=== PATIENT | female | born 1955 | race Caucasian/White ===

== ENCOUNTER 2016-06-24 12:17 | Emergency (ER) | payer MEDICARE ==
[2016-06-24 12:17] VITALS: BMI 31.7
[2016-06-24 12:21] VITALS: TEMP 98
[2016-06-24] MEDS ORDERED: SODIUM CHLORIDE 0.9% 10 ML FLUSH FLUSH PRN (12:45)
[2016-06-24] MEDS ORDERED: NS 1,000 ML IV ONE (12:45)
--- NOTE | 2016-06-24 12:49 | EDPRACDOC ---
- General Information Chief Complaint: Neuro Symptoms/Deficits Stated Complaint: DIZZINESS Time Seen by Provider: 06/24/16 12:40 Information Source: Patient Mode Of Arrival: Car Home Medications: Home Medications Aspirin 325 mg PO HS 10/17/12 Calcium Acetate 2,668 mg PO .TID WITH MEALS 10/17/12 Digoxin [Lanoxin, Digitek] 0.125 mg PO HS 10/17/12 Venlafaxine HCl ER [Effexor Xr] 75 mg PO HS 10/17/12 Vit B Cmplx 3/FA/Vit C/Biotin [Leatha-Alisa Rx Tablet] 1 tab PO DAILY 10/17/12 Alprazolam [Xanax] 0.5 mg PO .ONDIALYSISDAYS 11/02/12 CYANOCOBALAMIN (Vitamin B-12) [Vitamin B-12 (cyanocobalamin)] 1,000 mcg IM QMONTH 11/02/12 Diphenhydramine [Benadryl] 25 mg PO Q6H PRN 11/02/12 Magnesium 500 mg PO HS 11/02/12 [place]-3S/Dha/Epa/Fish Oil [Fish Oil 1,200 mg Softgel] 2 cap PO HS 11/02/12 Calcium Acetate 667 mg PO .BID WITH SNACKS 06/22/14 Gabapentin [Neurontin] 300 mg PO HS 06/22/14 Lansoprazole [Prevacid] 30 mg PO HS 06/22/14 Cefdinir 300 mg PO DAILY #3 capsule 06/24/16 Allergies/Adverse Reactions: Allergies Allergy/AdvReac Type Severity Reaction Status Date / Time ciprofloxacin [From Cipro] Allergy Unknown Hives* Verified 06/24/16 12:21 ciprofloxacin HCl Allergy Unknown Unknown Verified 06/24/16 12:21 [From Cipro] latex Allergy Unknown Rash-Genera Verified 06/24/16 12:21 lized Iodinated Contrast Media - Allergy Rash-Genera Verified 06/24/16 12:21 IV Dye lized Sulfa (Sulfonamide Allergy Rash-Genera Verified 06/24/16 12:21 Antibiotics) lized - History of Present Illness Onset: YEST Exact Onset of Symptoms: Unknown HPI: Pt c/o headache, dizziness, low BP, sob x 2 days. Denies fever, cough, congestion, cp, abd pain, n/v, changes in bowel or bladder, rash. Pt states felt bad prior to yesterday dialysis and continued to have low bp after receiving saline from dialysis. Symptoms Started: Reports: Gradually Symptoms Description: Constant Symptoms: Reports: Vertigo, Weak Symptom Severity: Reports: Unable to performs ADL's Associated signs and symptoms:: Reports: Headache Other History: Pt states open wound to R buttock x 2 weeks. Denies recent antibiotics. ED Past Medical History - History Reviewed Yes Nurses notes reviewed and agree except as marked - Patient Medical History Cardiac History: Reports: Atrial Fibrillation GI/ History: Reports: Renal Disease (CKD, ST I - REMOVED 1/4 OF LEFT KIDNEY), Ulcer, IBD (ILEOSTOMY) Musculoskeletal History: Reports: Arthritis, Gout Psychological History: Reports: Depression Systemic History: Reports: Cancer (KIDNEY), Anemia Surgical History: Reports: Cholecystectomy. Denies: Hysterectomy Date of Last Radiation Treatment: NO Date of Last Chemotherapy Date: NO - Family Medical History Reports: Hypertension (mom), Diabetes (sister), Cancer (mom- endometrial). Denies: Stroke, Cardiac Disorders - Social Medical History Smoking Status: Current some day smoker ETOH: None Substance Abuse: None EDM Review of Systems - Review of Systems Constitutional: Loss of Appetite, Weakness Ears: No Symptoms Reported. negative: Pain, Hearing Loss, Drainage, Ear Pulling Throat: No Symptoms Reported. negative: Pain, Swelling Nose: No Symptoms Reported. negative: Congestion, Bleeding, Discharge, Injection, Swelling, Deformity, Ecchymosis, Tender, Abrasion, Laceration Mouth: No Symptoms Reported. negative: Pain, Drooling Respiratory: Shortness of Breath Cardiovascular: No Symptoms Reported. negative: Chest Pain, Palpitations, Syncope, Edema, Orthopnea, PND, Skin Mottling, Cyanosis Gastrointestinal: No Symptoms Reported. negative: Pain, Constipation, Nausea, Vomiting, Diarrhea, Melena, Formula Intolerance Genitourinary: No Symptoms Reported. negative: Dysuria, Hematuria, Frequency, Discharge, Bleeding, Testicular Pain, Neurological: Dizziness, Headache Musculoskeletal: No Symptoms Reported. negative: Neck, Chestwall, Ribs, Back, Shoulder, Arm, Elbow, Forearm, Wrist, Hand, Pelvis, Hip, Femur, Knee, Leg, Ankle , Foot Integumentary: No Symptoms Reported. negative: Itching, Rash, Bruising, Wound Allergic/Immunologic: No Symptoms Reported. negative: Hives, Itching Hematologic: No Symptoms Reported. negative: Lymphadenopathy, Easy Bruising, Easy Bleeding Psychiatric: No Symptoms Reported. negative: Anxiety, Depression, Hallucinations, Insomnia, Suicidal - Physical Exam Constitutional: Alert Oriented to: Time, Person, Place Last recorded Vital Signs: Last Vital Signs Temp 98.0 F 06/24/16 12:19 Pulse 106 06/24/16 12:19 Resp 18 06/24/16 12:19 BP 85/53 L 06/24/16 12:19 Pulse Ox 96 06/24/16 12:19 Oxygen Pulse Oxygen Saturation 96 O2 Device Oxygen Flow Rate Fraction of Inspired Oxygen ( FIO2) - HEENT Head: Normal ( normocephalic) Eye Exam: Normal (PERRL, EOMI, Sclera white) Oropharynx: Normal (Pharynx:Moist without exudate,Gums-no swelling) Tympanic Membrane: Normal ENT EAC: Normal Nose: No Symptoms Reported (septum midline) Neck: Normal (FROM, trachea at midline) - Respiratory/Cardiovascular Respiratory: Normal - CTA (BBS clear to auscultation without adventitious sounds ) Cardiovascular: Tachycardia - GI Auscultation: Normal (NABS) Palpation: Normal (Soft,No rebound or guarding, non distended) Tenderness: Non tender, Other (ostomy bag RLQ) - Integumentary Skin: Normal, Warm, Dry, Other (R buttock 2 open wounds draining with erythema to surround tissue.) Lymphatics: Normal (no adenopathy) - Neurologic Memory Impaired: Normal Motor Function: Normal (Normal tone, Pulses 2+ No cyanosis or edema, FROM) Cranial Nerve: Normal (CN II-X11 intact sensation, strength 5/5) Cerebellar: Normal. negative: Ataxia, Past-Pointing, Tremor, Unable to Test, Other Mood Description: Normal Perception: Normal - Differential Diagnosis Anemia, CVA, Dehydration, Dysrhythmia, Electrolyte disorder, TIA, Vertigo - Results 06/24/16 12:50 06/24/16 12:50 06/24/16 16:23 Laboratory Results - last 24 hr 06/24/16 06/24/16 06/24/16 12:50 12:50 12:50 WBC 10.2 RBC 3.32 L Hgb 12.7 Hct 37.6 MCV 113 H MCH 38.2 H MCHC 33.8 RDW 15.7 H Plt Count 268 MPV 7.8 Neut % (Auto) 78.4 H Lymph % (Auto) 15.4 L [place] % (Auto) 4.2 Eos % (Auto) 1.4 Baso % (Auto) 0.6 Absolute Neuts (auto) 7.96 Absolute Lymphs (auto) 1.53 PT 11.4 H INR 1.1 APTT 26.1 Sodium 137 Potassium 3.6 Chloride 92 L Carbon Dioxide 25 Anion Gap 24 H BUN 32 H Creatinine 6.50 H Estimated GFR (MDRD) 7 L Glucose 125 H Calculated Osmolality 272 Lactic Acid Calcium 10.0 Total Bilirubin 1.0 AST 20 ALT 26 Alkaline Phosphatase 217 H Troponin I 0.02 Total Protein 7.5 Albumin 4.5 Urine Color Urine Clarity Urine pH Ur Specific [place] Urine Protein Urine Glucose (UA) Urine Ketones Urine Occult Blood Urine Nitrite Urine Bilirubin Urine Urobilinogen Ur Leukocyte Esterase Urine RBC Urine WBC Urine WBC Clumps Ur Epithelial Cells Amorphous Sediment Urine Bacteria Hyaline Casts Urine Mucus Digoxin 06/24/16 06/24/16 06/24/16 12:50 13:58 15:42 WBC RBC Hgb Hct MCV MCH MCHC RDW Plt Count MPV Neut % (Auto) Lymph % (Auto) [place] % (Auto) Eos % (Auto) Baso % (Auto) Absolute Neuts (auto) Absolute Lymphs (auto) PT INR APTT Sodium Potassium Chloride Carbon Dioxide Anion Gap BUN Creatinine Estimated GFR (MDRD) Glucose Calculated Osmolality Lactic Acid Calcium Total Bilirubin AST ALT Alkaline Phosphatase Troponin I 0.01 Total Protein Albumin Urine Color [place] Urine Clarity Cldy Urine pH 8.0 Ur Specific [place] 1.005 Urine Protein 3+ H Urine Glucose (UA) Neg Urine Ketones Neg Urine Occult Blood 3+ H Urine Nitrite Neg Urine Bilirubin Neg Urine Urobilinogen <2.0 Ur Leukocyte Esterase 2+ H Urine RBC Tntc H Urine WBC Tntc H Urine WBC Clumps Present H Ur Epithelial Cells 3+ Amorphous Sediment 1+ Urine Bacteria 2+ H Hyaline Casts 0-2 Urine Mucus Lg amt H Digoxin 0.60 L 06/24/16 15:42 WBC RBC Hgb Hct MCV MCH MCHC RDW Plt Count MPV Neut % (Auto) Lymph % (Auto) [place] % (Auto) Eos % (Auto) Baso % (Auto) Absolute Neuts (auto) Absolute Lymphs (auto) PT INR APTT Sodium Potassium Chloride Carbon Dioxide Anion Gap BUN Creatinine Estimated GFR (MDRD) Glucose Calculated Osmolality Lactic Acid 2.9 H Calcium Total Bilirubin AST ALT Alkaline Phosphatase Troponin I Total Protein Albumin Urine Color Urine Clarity Urine pH Ur Specific [place] Urine Protein Urine Glucose (UA) Urine Ketones Urine Occult Blood Urine Nitrite Urine Bilirubin Urine Urobilinogen Ur Leukocyte Esterase Urine RBC Urine WBC Urine WBC Clumps Ur Epithelial Cells Amorphous Sediment Urine Bacteria Hyaline Casts Urine Mucus Digoxin - EKG EKG #1 EKG Time: 12:52 Rate: bpm: 86 [place]: Normal Rhythm: Afib Block: RBBB ST: Nonsp Comparison: 10/15/15 (similar to previous) - Diagnostic Imaging Head Image interpreted by: Radiologist IMPRESSION: 1. No acute intracranial abnormalities. 2. Mild chronic microvascular ischemic change. Chest Image interpreted by: Radiologist IMPRESSION: Enlargement of cardiac silhouette. No acute abnormalities. - Additional Information Pt evaluated by florence Parish to d/c home Decision Time to Discharge: 16:23 - Departure Disposition: Home Condition: Stable Final Diagnosis: Cellulitis of right buttock UTI (urinary tract infection) Qualifiers: Urinary tract infection type: acute cystitis Hematuria presence: with hematuria Qualified Code(s): N30.01 - Acute cystitis with hematuria Instructions: Urinary Tract Infection in Women (ED), Dysuria, Cellulitis (ED), Acute Wound Care (ED) Education/Counseling Given To: Patient, Family Member Education/Counseling Given Regarding: Diagnosis, Treatment, Follow Up Referrals: Robby Brito MD [Primary Care Provider] - One Week Prescriptions: New Cefdinir 300 mg PO DAILY #3 capsule No Action Aspirin 325 mg PO HS Vit B Cmplx 3/FA/Vit C/Biotin [Leatha-Alisa Rx Tablet] 1 tab PO DAILY Digoxin [Lanoxin, Digitek] 0.125 mg PO HS Calcium Acetate 2,668 mg PO .TID WITH MEALS Venlafaxine HCl ER [Effexor Xr] 75 mg PO HS Alprazolam [Xanax] 0.5 mg PO .ONDIALYSISDAYS CYANOCOBALAMIN (Vitamin B-12) [Vitamin B-12 (cyanocobalamin)] 1,000 mcg IM QMONTH Magnesium 500 mg PO HS [place]-3S/Dha/Epa/Fish Oil [Fish Oil 1,200 mg Softgel] 2 cap PO HS Diphenhydramine [Benadryl] 25 mg PO Q6H PRN PRN Reason: Allergy Symptoms Lansoprazole [Prevacid] 30 mg PO HS Gabapentin [Neurontin] 300 mg PO HS Calcium Acetate 667 mg PO .BID WITH SNACKS Additional Instructions: Increase fluids. Start antibiotic after receiving dialysis. Return for worse or different symptoms.
[2016-06-24] MEDS ORDERED: NS 1,000 ML IV SCH (13:00)
[2016-06-24 13:03] LABS: AUTOMATED BASOPHIL 0.6 % (0-2); AUTOMATED EOSINOPHIL 1.4 % (0-5); AUTOMATED LYMPH 15.4 % (17-44); AUTOMATED MONOCYTE 4.2 % (3-10); AUTOMATED NEUTROPHIL 78.4 % (45-76); MPV 7.8 fL (7.4-10.4)
[2016-06-24 13:15] LABS: BLOOD UREA NITROGEN 32 MG/DL (7-17); CALCULATED OSMOLALITY 272 MOs/Kg (270-290); CHLORIDE 92 mEq/L (98-107); GLUCOSE 125 mg/dL (70-99); SODIUM LEVEL 137 mEq/L (137-146); TOTAL PROTEIN 7.5 G/DL (6.3-8.2)
[2016-06-24 13:18] LABS: PARTIAL THROMB. TIME 26.1 SEC (22-35); PT-INR 1.1
--- NOTE | 2016-06-24 13:44 | DIRPT ---
CLINICAL DATA: Shortness of breath, hypotension, headache, and dizziness 2 days, initial encounter, history dialysis last performed yesterday EXAM: PORTABLE CHEST 1 VIEW COMPARISON: Portable with few other 204 hours compared to 11/15/2015 FINDINGS: Enlargement of cardiac silhouette with minimal pulmonary vascular congestion. Mediastinal contours and pulmonary vascularity normal. Lungs clear. No pleural effusion or pneumothorax. Bones mildly demineralized. IMPRESSION: Enlargement of cardiac silhouette. No acute abnormalities. Electronically Signed By: Kurtis Baez M.D. On: 06/24/2016 13:42
--- NOTE | 2016-06-24 13:50 | DIRPT ---
CLINICAL DATA: Headache and dizziness. Decreased appetite since yesterday. EXAM: CT HEAD WITHOUT CONTRAST TECHNIQUE: Contiguous axial images were obtained from the base of the skull through the vertex without intravenous contrast. COMPARISON: 10/16/2012 FINDINGS: The ventricles are normal in size and configuration. There are no parenchymal masses or mass effect. There is no evidence of a cortical infarct. Patchy areas of white matter hypoattenuation are noted, mostly in the subcortical white matter, consistent with mild chronic microvascular ischemic change. There are no extra-axial masses or abnormal fluid collections. There is no intracranial hemorrhage. The visualized sinuses and mastoid air cells are clear. IMPRESSION: 1. No acute intracranial abnormalities. 2. Mild chronic microvascular ischemic change. Electronically Signed By: Jomar Stoddard M.D. On: 06/24/2016 13:48
[2016-06-24 14:31] LABS: LEUKOCYTES/URINE 2+ (NEGATIVE); NITRITE/URINE NEG (NEGATIVE); URINE OCCULT BLOOD 3+ (NEG/TRACE)
[2016-06-24 14:35] LABS: AMORPHOUS 1+; RBC/URINE TNTC (0-5); WBC/URINE TNTC (0-5)
[2016-06-24] MEDS ORDERED: CEFTRIAXONE 1 GM in D5W 100 ML IV ONE (15:09)
[2016-06-24] MEDS ORDERED: CEFTRIAXONE 1 GM VIAL IM ONE (16:23)
[2016-06-24] MEDS ORDERED: WATER 10 ML ONE (16:29)
[2016-06-24 16:36] VITALS: BP 89/53; PULSE 101
== END 2016-06-24 15:25 | disposition home or self-care (01) ==
LOC: ED 12:17
DX: L03.317 Cellulitis of buttock (principal); N30.01 Acute cystitis with hematuria; I48.91 Unspecified atrial fibrillation; N18.1 Chronic kidney disease, stage 1; Z99.2 Dependence on renal dialysis; Z79.899 Other long term (current) drug therapy; Z72.0 Tobacco use
CPT/HCPCS: 36415; 70450; 71010; 80053; 80162; 81001; 83605; 84484; 85025; 85610; 85730; 87040; 87086; 93005; 96360; 96361; 96372; 99284; J0696; J7060